=== PATIENT | female | born 1975 | race Caucasian/White ===

== ENCOUNTER 2019-06-12 14:53 | Emergency (ER) | payer OTHER ==
[~2019-06-12] VITALS: Ht 180.3 cm; Wt 112.0 kg
[2019-06-12] MEDS ORDERED: FORTAMET1000 MG PO (15:23)
[2019-06-12] MEDS ORDERED: LOSARTAN-HCTZ1 EAC1 PO (15:23)
[2019-06-12] MEDS ORDERED: LANTUS SOL100 UNIT/1 SQ (15:23)
[2019-06-12] MEDS ORDERED: SYNTHROID88 MCG PO (15:24)
== END 2019-06-12 17:11 | disposition home or self-care (01) ==
LOC: ER 14:53
DX: J06.9 Acute upper respiratory infection, unspecified (principal); B96.0 Mycoplasma pneumoniae [M. pneumoniae] as the cause of diseases classified elsewhere